=== PATIENT | male | born 1980 | race African-American/Black ===

== ENCOUNTER 2017-06-26 21:58 | Emergency (ER) | payer SELFPAY ==
[~2017-06-26] VITALS: Ht 167.6 cm; Wt 67.1 kg
--- NOTE | 2017-06-26 22:00 | NUR ---
[id number] FR [address]RE[address] FOR ETOH, SITTING IN FRONT OF SUBWAY, NAD NOTED, VSS, RESP EVEN AND UNLABORED, PT PUT ON MONITOR, WAITING FOR MD MICHAEL.
--- NOTE | 2017-06-27 01:00 | NUR ---
AWAKENS TO NAME. AMBULATED TO BATHROOM WITH STEADY GAIT. VSS, NAD NOTED. DENIES COMPLAINT. RETURNED TO BED; SLEEPING COMFORTABLY LEFT LATERAL ON BED. WILL CONT TO MONITOR.
--- NOTE | 2017-06-27 02:53 | NUR ---
PT RESTING COMFORTABLY SUPINE ON BED. AWAKENS TO NAME. DENIES COMPLAINT THEN RETURNS TO SLEEP. VSS, NAD NOTED. WILL CONT TO MONITOR.
--- NOTE | 2017-06-27 04:59 | NUR ---
PT RESTING COMFORTABLY LEFT LATERAL ON BED. AWAKENS TO NAME. GIVEN BLANKET REQUESTED. DENIES COMPLAINT THEN RETURNS TO SLEEP. VSS, NAD NOTED. WILL CONT TO MONITOR.
[2017-06-27 05:49] VITALS: BP 120/78
--- NOTE | 2017-06-27 05:50 | NUR ---
Patient given written and verbal discharge instructions. Patient verbalizes understanding of instructions. Patient is ambulatory with steady gait. Refuses offer of correction placement. Patient given list of available shelters in surrounding area.
== END 2017-06-27 05:51 | disposition home or self-care (01) ==
LOC: ER 22:02
DX: F10.129 Alcohol abuse with intoxication, unspecified (principal)
CPT/HCPCS: 82962; 99283; A4606; Z7610

== ENCOUNTER 2017-07-11 18:57 | Emergency (ER) | payer SELFPAY ==
[~2017-07-11] VITALS: Ht 175.3 cm; Wt 74.8 kg
--- NOTE | 2017-07-11 19:00 | NUR ---
"FOUND IN [place] LOC[place] PARKING [place]; FSBS 163G/DL" NO S/S OF TRAUMA NOTED, NAD NOTED, VSS, RESP EVEN AND UNLABORED, PT WAS PUT ON MONITOR, WAITING FOR MD MICHAEL.
--- NOTE | 2017-07-11 21:19 | NUR ---
Patient is resting comfortably in bed with eyes closed. Easily aroused. VSS
--- NOTE | 2017-07-11 23:17 | NUR ---
ENDORSED TO NICK, CHARGE NURSE, VSS, RESTING COMFORTABLY, ON MONITOR.
[2017-07-12 03:27] VITALS: BP 102/64
--- NOTE | 2017-07-12 03:27 | NUR ---
Patient given written and verbal discharge instructions. Patient verbalizes understanding of instructions. Patient is ambulatory with steady gait. Refuses offer of care home placement. Patient given list of available shelters in surrounding area.
== END 2017-07-12 03:28 | disposition home or self-care (01) ==
LOC: ER 18:58
DX: F10.10 Alcohol abuse, uncomplicated (principal); R47.81 Slurred speech
CPT/HCPCS: 99284; A4606; Z7610